=== PATIENT | female | born 1970 | race Caucasian/White ===

== ENCOUNTER 2020-01-25 03:37 | Inpatient (IN) | payer MEDICAID ==
[~2020-01-25] VITALS: Ht 167.6 cm; Wt 86.4 kg
[2020-01-25] VITALS (7 sets, daily range): BP systolic 136–151; BP diastolic 64–91; Ht 167.6 cm; Wt 86.4 kg
--- NOTE | 2020-01-25 04:02 | NUR ---
VERBAL ORDER FROM DR JIMÉNEZ TO HOLD ASA AND NITRO.
[2020-01-25 04:13] LABS: CALC OSMOLALITY 275 mosm/kg (275-300); CALCIUM 8.5 mg/dL (8.5-10.1); CARBON DIOXIDE 27.3 mmol/L (21.0-32.0); CHLORIDE - SERUM 103 mmol/L (98-107); CREATININE - SERUM 0.7 mg/dL (0.6-1.3); GLUCOSE 95 mg/dL (74-106); POTASSIUM - SERUM 3.6 mmol/L (3.5-5.1); SODIUM 138 mmol/L (136-145); UREA NITROGEN 12 mg/dL (7-18); eGFR NON AFRICAN AMERICAN > 90 mL/min (90-120)
[2020-01-25 04:20] LABS: APTT 28.1 SECONDS (22.8-39.4); INR 0.95 (0.85-1.17); PROTIME 12.6 SECONDS (11.6-15.0)
--- NOTE | 2020-01-25 04:20 | NUR ---
URINE SPECIMEN TAKEN TO LAB
[2020-01-25 04:25] LABS: ALBUMIN 3.1 g/dL (3.4-5.0); ALKALINE PHOSPHATASE 60 U/L (30-120); ALT (SGPT) 30 U/L (10-68); BILIRUBIN - TOTAL 0.14 mg/dL (0.2-1.3); CREATINE KINASE 27 UL (21-215); LIPASE 176 U/L (73-393); MAGNESIUM - SERUM 1.8 mg/dL (1.8-2.4); PRO BNP 262 pg/mL (0-125); PROTEIN - SERUM 6.9 g/dL (6.4-8.2)
[2020-01-25 04:27] LABS: D-DIMER-QUANTITATIVE < 0.27 ug/mLFEU (0.20-0.54)
[2020-01-25 04:30] LABS: TROPONIN-I < 0.017 ng/mL (0.000-0.060)
[2020-01-25 04:33] LABS: BASOPHILS 1.2 % (0-2); EOSINOPHILS 2.2 % (0-7); HEMATOCRIT 21.3 % (36.0-48.0); IMMATURE GRANULOCYTES 0.2 % (0-5); LYMPHOCYTES 22.7 % (15-50); MCHC 26.8 g/dL (31.0-37.0); MCV 72.2 fL (80.0-100.0); MEAN PLATELET VOLUME 8.6 fL (7.4-10.4); MONOCYTES 7.3 % (2-11); NEUTROPHILS 66.4 % (40-80); PLATELET COUNT 384 10x3/uL (130-400); RBC 2.95 10x6/uL (4.00-5.40); RDW 18.4 % (11.5-14.5); WBC 9.7 10x3/uL (4.8-10.8)
[2020-01-25 04:35] LABS: HEMOGLOBIN 5.7 g/dL (12-16); MCH 19.3 pg (26.0-34.0)
--- NOTE | 2020-01-25 04:50 | NUR ---
SADA JIMÉNEZ AT PT BEDSIDE. PLAN OF CARE DISCUSSED WITH PT. CONSENT FOR BLOOD TRANSFUSION SIGNED AT THIS TIME.
[2020-01-25 05:02] LABS: UDS - AMPHET POSITIVE QUAL (NEGATIVE); UDS - BARB NEGATIVE QUAL (NEGATIVE); UDS - BENZO NEGATIVE QUAL (NEGATIVE); UDS - COCAINE NEGATIVE QUAL (NEGATIVE); UDS - OPIATE NEGATIVE QUAL (NEGATIVE); UDS - PCP NEGATIVE QUAL (NEGATIVE); UDS - THC NEGATIVE QUAL (NEGATIVE)
[2020-01-25 05:04] LABS: BILIRUBIN NEGATIVE (NEGATIVE); GLUCOSE NEGATIVE (NEGATIVE); HCG URINE NEGATIVE (NEGATIVE); KETONE NEGATIVE (NEGATIVE); NITRITE NEGATIVE (NEGATIVE); UROBILINOGEN NORMAL (NORMAL)
--- NOTE | 2020-01-25 05:36 | NUR ---
PT RECEIVED TO ROOM VIA WHEELCHAIR ESCORTED BY ER NURSE. POSITIONED IN BED FOR COMFORT. ORIENTED TO ROOM AND CALL LIGHT. VITALS STABLE. BLOOD TRANSFUSION CONSENT SIGNED IN ER AND PLACED IN CHART. STARTED NS TO RUN WITH BLOOD. AWAITING NOTIFICATION FROM LAB THAT BLOOD IS READY.
--- NOTE | 2020-01-25 06:55 | NUR ---
ALERT AND ORIENTED, RESTING IN BED WITH EYES OPEN. NO C/O PAIN. NO S/S OF ACUTE DISTRESS NOTED. IV TO RIGHT AC, NS INFUSING @ 20ML/HR. SITE PATENT WITHOUT REDNESS OR SWELLING. H&H 5.7/21.3 THIS AM. WILL TRANSFUSE 2 UNITS OF PRBC PER PHYSICIAN ORDERS WHEN READY. DENIES ANY NEEDS AT THIS TIME. CALL LIGHT IN REACH. WILL CONTINUE TO MONITOR.
--- NOTE | 2020-01-25 09:45 | NUR ---
STARTED TRANSFUSION OF FIRST UNIT OF PRBC. VITALS STABLE. NO S/S OF ACUTE DISTRESS.
--- NOTE | 2020-01-25 12:09 | NUR ---
INFUSING OF 1ST UNIT OF PRBC COMPLETED. VITALS STABLE. NO S/S OF ACUTE DISTRESS NOTED.
--- NOTE | 2020-01-25 12:22 | NUR ---
INFUSING STARTED ON 2ND UNIT OF PRBC. VITALS STABLE. NO S/S OF ACUTE DISTRESS. DENIES ANY NEEDS AT THIS TIME. CALL LIGHT IN REACH. WILL CONTINUE TO MONITOR.
--- NOTE | 2020-01-25 12:38 | NUR ---
EATING LUNCH, WITHOUT DISTRESS.MONITOR FOR NEEDS
--- NOTE | 2020-01-25 14:30 | NUR ---
INFUSION OF SECOND UNIT OF PRBC COMPLETE. VITALS STABLE. NO S/S OF ACUTE DISTRESS NOTED. DENIES ANY NEEDS AT THIS TIME. CALL LIGHT IN REACH. WILL CONTINUE TO MONITOR.
--- NOTE | 2020-01-25 18:56 | NUR ---
ALERT AND ORIENTED, RESTING IN BED WITH EYES CLOSED. RESPIRATIONS EVEN AND UNLABORED. AROUSES TO VOICE. NO C/O PAIN. NO S/S OF ACUTE DISTRESS NOTED. DENIES ANY NEEDS AT THIS TIME. CALL LIGHT IN REACH. WILL CONTINUE TO MONITOR.
[2020-01-25 20:47] LABS: HEMATOCRIT 29.8 % (36.0-48.0); HEMOGLOBIN 8.4 g/dL (12-16)
[2020-01-26] VITALS: BP 139/66
[2020-01-26 05:49] LABS: BASOPHILS 0.6 % (0-2); EOSINOPHILS 1.8 % (0-7); HEMATOCRIT 28.9 % (36.0-48.0); HEMOGLOBIN 8.3 g/dL (12-16); IMMATURE GRANULOCYTES 0.2 % (0-5); LYMPHOCYTES 13.6 % (15-50); MCHC 28.7 g/dL (31.0-37.0); MONOCYTES 7.9 % (2-11); NEUTROPHILS 75.9 % (40-80); PLATELET COUNT 364 10x3/uL (130-400); RDW 20.4 % (11.5-14.5); WBC 11.4 10x3/uL (4.8-10.8)
[2020-01-26 05:50] VITALS: BP 144/81
[2020-01-26 06:18] LABS: MCV 76.7 fL (80.0-100.0); RBC 3.77 10x6/uL (4.00-5.40)
[2020-01-26 06:20] LABS: CALC OSMOLALITY 276 mosm/kg (275-300); CARBON DIOXIDE 25.5 mmol/L (21.0-32.0); CHLORIDE - SERUM 105 mmol/L (98-107); CREATININE - SERUM 0.7 mg/dL (0.6-1.3); GLUCOSE 92 mg/dL (74-106); POTASSIUM - SERUM 3.8 mmol/L (3.5-5.1); SODIUM 139 mmol/L (136-145); UREA NITROGEN 9 mg/dL (7-18); eGFR NON AFRICAN AMERICAN > 90 mL/min (90-120)
--- NOTE | 2020-01-26 06:55 | NUR ---
RESTING IN BED WITH EYES CLOSED. RESPIRATIONS EVEN AND UNLABORED. AROUSES TO VOICE. UP AD SHEEBA.IV TO RIGHT AC, NS INFUSING @ 20ML/HR. SITE PATENT WITHOUT REDNESS OR SWELLING. H&H 8.3/28.9 THIS AM. NO S/S OF ACUTE DISTRESS NOTED. CALL LIGHT IN REACH. WILL CONTINUE TO MONITOR.
[2020-01-26] MEDS ORDERED: SMZ-TMP DS 800-1 TAB PO (12:12)
[2020-01-26 13:20] VITALS: BP 154/79
[2020-01-26 18:56] VITALS: BP 148/69
--- NOTE | 2020-01-26 19:58 | NUR ---
I have reviewed this patient and I concur with the Shift Assessment completed by the Licensed Practical Nurse today this shift.
[2020-01-26 20:00] VITALS: BP 148/82
--- NOTE | 2020-01-26 20:00 | NUR ---
ALERT UP AMBULATING IN ROOM, DENIES PAIN OR NEEDS AT THIS TIME, SEE SHIFT ASSESSMENT, CALL LIGHT IN REACH
[2020-01-27 05:56] LABS: BASOPHILS 0.7 % (0-2); EOSINOPHILS 1.5 % (0-7); HEMOGLOBIN 8.7 g/dL (12-16); IMMATURE GRANULOCYTES 0.3 % (0-5); LYMPHOCYTES 12.5 % (15-50); MCH 21.6 pg (26.0-34.0); MCHC 28.1 g/dL (31.0-37.0); MCV 77.1 fL (80.0-100.0); MEAN PLATELET VOLUME 9.1 fL (7.4-10.4); MONOCYTES 7.4 % (2-11); NEUTROPHILS 77.6 % (40-80); PLATELET COUNT 387 10x3/uL (130-400); RBC 4.02 10x6/uL (4.00-5.40); RDW 20.9 % (11.5-14.5)
[2020-01-27 06:28] LABS: CALC OSMOLALITY 276 mosm/kg (275-300); CALCIUM 8.3 mg/dL (8.5-10.1); CHLORIDE - SERUM 106 mmol/L (98-107); CREATININE - SERUM 0.7 mg/dL (0.6-1.3); GLUCOSE 100 mg/dL (74-106); POTASSIUM - SERUM 3.5 mmol/L (3.5-5.1); SODIUM 140 mmol/L (136-145); UREA NITROGEN 7 mg/dL (7-18); eGFR NON AFRICAN AMERICAN > 90 mL/min (90-120)
[2020-01-27 06:37] LABS: WBC 15.1 10x3/uL (4.8-10.8)
--- NOTE | 2020-01-27 07:43 | NUR ---
PT RESTING IN BED WITH EYES CLOSED. RESP EVEN AND UNLABORED. EASILY AWAKENS WITH NAME CALLED. PT REPORTS PAIN 4/10 AT THIS TIME. PT VOICES NPO STATUS SINCE MIDNIGHT SHE IS ANTICIPATING SURGERY THIS AM. IV TO RIGHT AC WITH NS @ KVO INFUSING VIA PUMP. SITE WITHOUT REDNESS OR EDEMA. DENIES FURTHER NEEDS AT THIS TIME. CL WITHIN REACH. ENCOURAGED TO CALL WITH NEEDS. CONTINUE POC
[2020-01-27 08:00] VITALS: BP 152/67
--- NOTE | 2020-01-27 09:34 | NUR ---
PT PRE-OP FOR SURGERY. PT SIGNED CONSENTS FOR SURGERY. DISCUSSED CONSENTS SIGNED, PT VOICES UNDERSTANDING, VOICING MD HAD DISCUSSED PROCEDURE WITH PT ON YESTERDAY. PT DENIES ANY QUESTIONS AT THIS TIME. CL WITHIN REACH. ENCOURAGED TO CALL WITH NEEDS.
--- NOTE | 2020-01-27 11:20 | NUR ---
PT REMAINS OUT OF ROOM FOR PROCEDURE
[2020-01-27 12:21] VITALS: BP 143/73
--- NOTE | 2020-01-27 12:22 | NUR ---
PT RETURNED FROM POST OP VIA BED. AWAKE ALERT AND ORIENTED. PT DENIES PAIN AT THIS TIME. CONSUMING ICE CHIPS AND TOLERATING WELL. DENIES FURTHER NEEDS AT THIS TIME. CL WITHIN REACH. ENCOURAGED TO CALL WITH NEEDS.
--- NOTE | 2020-01-27 14:31 | NUR ---
PT ASSISTED TO BATHROOM. SCANT AMOUNT OF BLOODY DISCHARGE NOTED. PT GERARD WELL
--- NOTE | 2020-01-27 14:35 | NUR ---
PT SITTING UP IN CHAIR AT BEDSIDE. NO ACUTE DISTRESS NOTED. CL WITHIN REACH. ENCOURAGED RODNEY ALL WITH NEEDS
--- NOTE | 2020-01-27 17:21 | MORECARE ---
CASE MANAGEMENT DISCHARGE SUMMARY PATIENT: LORAINE HITCHCOCK UNIT: [id number] ADM DATE: 01/25/20 AGE: 49 : 70 SEX: F ROOM/BED: D.2235 AUTHOR: COMFORT PAN PHYSICIAN: REFERRING PHYSICIAN: QAMAR DUMONT MD DATE OF SERVICE: 01/27/20 Discharge Plan Patient Name: LORAINE HITCHCOCK [facility] [facility] 1970 Planned Disposition: Home Anticipated Discharge Date: Discharge Date: Expected LOS: Initial Reviewer: [email or web address] Initial Review Date: 01/27/2020 Generated: 01/27/20 6:20 pm Patient Name: LORAINE HITCHCOCK Page 55612 at 1721 All edits/amendments must be made on the electronic document DICTATION DATE: 01/27/201719 BUSINESS TRAVEL CONSULTANT: MACIE 01/27/201719 RPT#: [id number] DC DATE: STATUS: ADM IN [facility] [address] [place] [address] END OF REPORT
--- NOTE | 2020-01-27 17:28 | MORECARE ---
CASE MANAGEMENT DISCHARGE SUMMARY PATIENT: LORAINE HITCHCOCK UNIT: [id number] ADM DATE: 01/25/20 AGE: 49 : 70 SEX: F ROOM/BED: D.2235 AUTHOR: COMFORT PAN PHYSICIAN: REFERRING PHYSICIAN: QAMAR DUMONT MD DATE OF SERVICE: 01/27/20 Discharge Plan Patient Name: LORAINE HITCHCOCK Facility: [facility]:[place] : 1970 Planned Disposition: Home Anticipated Discharge Date: Discharge Date: Expected LOS: Initial Reviewer: [email or web address] Initial Review Date: 01/27/2020 Generated: 01/27/20 6:27 pm Comments DCP- Discharge Planning Updated by [email or web address]: Jacqui Yepez on 01/27/20 4:[address] Patient Name: LORAINE HITCHCOCK Admission Status: ER Accout number: [id number] Admission Date: 01-25-2020 : 1970 Admission Diagnosis:CHEST PAIN, UNSPECIFIED Attending: QAMAR DUMONT Current LOS: 2 Anticipated DC Date: Planned Disposition: Home Primary Insurance: MEDICAID [place] PEND[place] Discharge Planning Comments: CM met with patient at bedside after explaining CM role and obtaining verbal consent. CM discussed availability / needs of home health, REHAB and medical equipment. PATIENT DENIES ANY DISCHARGE NEEDS. STATES IS CALLING SOMEONE TO PICK HER UP. Water Softener Installer: Jacqui Yepez DCPIA - Discharge Planning Initial Assessment Updated by [email or web address]: Jacqui Yepez on 01/27/20 5:21 pm * Is the patient Alert and Oriented? Yes * PCP NONE * [facility] * Preadmission Environment Home with Family * ADLs Independent * Additional services required to return to the preadmission environment? No * Can the patient safely return to the preadmission environment? Yes * Has this patient been hospitalized within the prior 30 days at any hospital? No Last DP export: 01/27/20 4:21 pm Patient Name: LORAINE HITCHCOCK Page 51008 at 9560 All edits/amendments must be made on the electronic document DICTATION DATE: 01/27/20 1922 LIGHT OIL OPERATOR: MACIE 01/27/20 1727 RPT#: [id number] DC DATE: STATUS: ADM IN [facility] [address] [place] [address] END OF REPORT
--- NOTE | 2020-01-27 22:40 | NUR ---
IN REPORT STAFF WAS INFORMED BY OFF GOING NURSE THAT ONE OF THE DRS HAD SAID SHE COULD D/C HOME. BUT WERE WATTING ONE THE OTHER DR TO OK IT. BUT WE WERE WATTING ON ORDERS AND PATIENT WAS AWARE. SHE STATED SHE WAS NOT STAYING TO NIGHT. ASK TO HAVE IV DISCONECTED SO SHE COULD GO TO THE BATHROOM WITH OUT TAKING THE IV POLE WITH HER. OFF GOING NURSE DID THIS FOR HER. SHE WENT TO BATHROOM AND WE WENT TO NEXT ROOM FOR REPORT. LOOKED IN ROOM AT ABOUT 1999 SHE WAS NOT IN BED BATROOM DOOR WAS CLOSED .ASSUMED SHE WAS IN THERE. LOOKED IN AT 2044 SHE WAS NOT IN BED CHECKED BATROOM SHE WAS NOT THERE AND GOWN WAS ON THE FLOOR. NOT ARIELLE IN CLOSET. [facility] FOR [facility]. THEY CAME DID HOSPITAL CHECK DID NOT FIND HER. CALL TO CONDUCTOR/BRAKEMAN AND INFORMED.
--- NOTE | 2020-01-27 23:58 | MORECARE ---
CASE MANAGEMENT DISCHARGE SUMMARY PATIENT: LORAINE HITCHCOCK UNIT: [id number] ADM DATE: 01/25/20 AGE: 49 : 70 SEX: F ROOM/BED: D.2235 AUTHOR: COMFORT PAN PHYSICIAN: REFERRING PHYSICIAN: QAMAR DUMONT MD DATE OF SERVICE: 01/27/20 Discharge Plan Patient Name: LORAINE HITCHCOCK Facility: [facility]:[place] : 1970 Planned Disposition: Home Anticipated Discharge Date: Discharge Date: 01/27/2020 Expected LOS: Initial Reviewer: [email or web address] Initial Review Date: 01/27/2020 Generated: 01/28/20 12:58 am Comments DCP- Discharge Planning Updated by [email or web address]: Jacqui Yepez on 01/27/20 4:[address] Patient Name: LORAINE HITCHCOCK Admission Status: ER Accout number: [id number] Admission Date: 01-25-2020 : 1970 Admission Diagnosis:CHEST PAIN, UNSPECIFIED Attending: QAMAR DUMONT Current LOS: 2 Anticipated DC Date: Planned Disposition: Home Primary Insurance: MEDICAID [place] PENDING Discharge Planning Comments: CM met with patient at bedside after explaining CM role and obtaining verbal consent. CM discussed availability / needs of home health, REHAB and medical equipment. PATIENT DENIES ANY DISCHARGE NEEDS. STATES IS CALLING SOMEONE TO PICK HER UP. Director Nicu: Jacqui Yepez DCPIA - Discharge Planning Initial Assessment Updated by [email or web address]: Jacqui Yepez on 01/27/20 5:21 pm * Is the patient Alert and Oriented? Yes * PCP NONE * [facility]acy [facility] * Preadmission Environment Home with Family * ADLs Independent * Additional services required to return to the preadmission environment? No * Can the patient safely return to the preadmission environment? Yes * Has this patient been hospitalized within the prior 30 days at any hospital? No Last DP export: 01/27/20 4:28 pm Patient Name: LORAINE HITCHCOCK Page 24858 at 0438 All edits/amendments must be made on the electronic document DICTATION DATE: 01/27/202357 AUTOCAD: MACIE 01/27/202357 RPT#: [id number] DC DATE:01/27/20 STATUS: DIS IN [facility] [address] [place] [address] END OF REPORT
== END 2020-01-27 19:30 | disposition left against medical advice (07) | DRG 812 ==
LOC: D.ER 03:37 → OBSVTIME 04:41 → D.MS 04:41
PROVIDERS: Family Medicine; ADMIT Internal Medicine Nephrology; ATTEND Internal Medicine Nephrology
DX: D50.9 Iron deficiency anemia, unspecified (principal); N39.0 Urinary tract infection, site not specified; F17.213 Nicotine dependence, cigarettes, with withdrawal; E44.0 Moderate protein-calorie malnutrition; F17.203 Nicotine dependence unspecified, with withdrawal; Z68.30 Body mass index [BMI] 30.0-30.9, adult; N92.4 Excessive bleeding in the premenopausal period; F15.10 Other stimulant abuse, uncomplicated